=== PATIENT | male | born 1945 | race African-American/Black ===

== ENCOUNTER 2017-09-19 20:03 | Emergency (ER) | payer MEDICARE ==
[~2017-09-19] VITALS: Ht 182.9 cm; Wt 96.4 kg
[2017-09-19] MEDS ORDERED: htn meds PO (20:11)
[2017-09-19] MEDS ORDERED: water pill PO (20:14)
[2017-09-19 20:25] LABS: GLUCOSE,POINT OF CARE 110 MG/DL (70-110)
[2017-09-19] MEDS ORDERED: CYCLOBENZAPRINE HCL 10 MG TABLET PO ONE (21:00)
[2017-09-19] MEDS ORDERED: KETOROLAC TROMETHAMINE 60 MG/2 ML VIAL IM ONE (22:45)
[2017-09-19 22:46] VITALS: BP 148/73
== END 2017-09-19 22:00 | disposition home or self-care (01) ==
LOC: EMS 20:05
DX: M62.838 Other muscle spasm (principal); R51 Headache; R07.9 Chest pain, unspecified; E11.9 Type 2 diabetes mellitus without complications; I10 Essential (primary) hypertension; V43.52XA Car driver injured in collision with other type car in traffic accident, initial encounter; Y93.89 Activity, other specified; Y92.89 Other specified places as the place of occurrence of the external cause; Y99.8 Other external cause status
CPT/HCPCS: 70450; 71046; 72125; 82962; 93005; 96372; 99284; J1885